=== PATIENT | male | born 1955 | race African-American/Black ===

== ENCOUNTER 2018-07-13 10:37 | Inpatient (IN) ==
[2018-07-13] MEDS ORDERED: Ondansetron 4 MG/2 ML VIAL IVP ONE (11:42)
[2018-07-13] MEDS ORDERED: 0.9 % Sodium Chloride 1,000 ML IVC ONE ×2 (11:42→14:18)
[2018-07-13] MEDS ORDERED: Ketorolac 30 MG/ML VIAL IVP ONE (11:42)
--- NOTE | 2018-07-13 11:46 | Emergency Department Note ---
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 He describes as a sharp stabbing pain that has been constant and exacerbated by by mouth. The patient states she is also had nausea and vomiting that is nonbloody and nonbilious. States he has had a bowel movement in 3 days. 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 Denies any other drug use. States it feels different than when he had pancreatitis. No back pain, flank pain, urinary symptoms or testicular pain. Pain Scale: 9 - Related Data Home Medications Medication Instructions Recorded Confirmed No Known Home Drugs 07/13/18 07/13/18 Allergies Allergy/AdvReac Type Severity Reaction Status Date / Time No Known Allergies Allergy Verified 10/25/17 15:11 All systems ED: reviewed and negative except as stated. Review of Systems: As Per HPI Constitutional: Denies: fever, chills Cardiovascular: Denies: chest pain, palpitations, dyspnea on exertion Respiratory: Denies: cough, dyspnea, wheezes Gastrointestinal: Reports: abdominal pain, nausea, vomiting Genitourinary: Denies: urgency, dysuria, testicular pain Musculoskeletal: Denies: back pain, neck pain Integumentary: Denies: rash Past Medical History - Past Medical History Attestation: Yes The following information was validated with the patient. Medical history: Reports: COPD, hyperlipidemia, hypertension, seizures, other Psychiatric history: Reports: anxiety, bipolar, depression, other - Social History Smoking Status: Current every day smoker Smokeless Tobacco Status: No Alcohol use: Reports: none Drug use: Reports: none Physical Exam CONSTITUTIONAL: Well-appearing; well-nourished; A&O X 3, in no apparent distress. Hypertensive. HEAD: Normocephalic; atraumatic EYES: PERRL, no scleral icterus NOSE: The nose is normal in appearance without rhinorrhea NECK: No JVD or distended neck veins RESP: Normal chest excursion with respiration; breath sounds clear and equal bilaterally; no wheezes, rhonchi, or rales CARD: Regular rhythm, without murmurs, rub or gallop ABD: Non-distended; tender in the epigastric and RUQ without rigidity, no rebound patient has voluntary guarding, no pulsatile mass CHEST: No pain with palpation SKIN: Normal for age and race; warm and dry without diaphoresis ; no apparent lesions EXTREMITIES: Pulses are 2 plus and equal times 4 extremities, no peripheral edema or calf muscle pain - General Limitations: no limitations General appearance: alert Course Course Narrative: Patient will undergo evaluation of his abdominal pain with a CT that is noncontrast of the abdomen and pelvis as well as labs to evaluate for pancreas, liver or gallbladder dysfunction. While he is waiting for CT scan we will treat his pain initially with Toradol and Levsin as well as his nausea with Zofran. We will perform a bedside ultrasound to evaluate the patient's gallbladder. Patient agrees with this plan. - Reevaluation(s) Reevaluation #1: On bedside ultrasound patient's gallbladder appeared to be possibly contracted with no information of the wall and no stones present. Patient CT scan is significant for pancreatitis versus duodenitis given clinical presentation patient is concerning for pancreatitis his lipase is elevated and his CBC does show signs of concentration possibly secondary to dehydration. The patient received 1 L of fluids as well as Toradol for pain. I discussed the patient's case with the hospitalist on-call, Dr. Saravia, and he agrees to accept the patient. He requested an additional liter of fluids as well as a 200 ML per hour maintenance. Time: 15:24 Vital Signs Temperature 98.2 F 07/13/18 10:49 Pulse Rate 91 07/13/18 10:49 Respiratory Rate 20 07/13/18 10:49 Blood Pressure 158/105 07/13/18 10:49 O2 Sat by Pulse Oximetry 97 07/13/18 10:49 Temperature 98.3 F 07/13/18 15:28 Pulse Rate 71 07/13/18 15:28 Respiratory Rate 14 07/13/18 15:28 Blood Pressure 176/97 07/13/18 15:28 O2 Sat by Pulse Oximetry 98 07/13/18 15:28 Oxygen Delivery Oxygen Delivery Room Air Medical Decision Making - Medical Records Medical records reviewed: Yes I reviewed the patient's medical records. - Lab Data Lab results reviewed: Yes I reviewed the patient's lab results. Result diagrams: 07/13/18 11:54 07/13/18 11:54 Lab Results 07/13/18 07/13/18 07/13/18 Range/Units 11:54 11:54 12:00 WBC 13.0 H (4.3-11.1) K/mcL RBC 5.94 H (4.19-5.50) M/mcL Hgb 17.3 H (12.9-16.9) g/dL Hct 50.7 H (37.5-50.1) % MCV 85.4 (83.0-100.0) fL MCH 29.1 (28.0-33.3) pg MCHC 34.1 (31.6-35.5) g/dL RDW 16.4 H (11.5-14.5) % Plt Count 347 (140-400) K/mcL MPV 8.9 L (9.4-12.4) fL Immature Gran % 0.5 (0-4) % Seg Neutrophils % 84.4 % Lymphocytes % 8.4 % Monocytes % 6.5 % Eosinophils % 0.0 % Basophils % 0.2 % Neutrophils # 11.0 H (1.6-8.9) K/mcL Lymphocytes # 1.1 (0.6-4.6) K/mcL Monocytes # 0.8 (0.0-1.3) K/mcL Eosinophils # 0.0 (0.0-0.6) K/mcL Basophils # 0.0 (0.0-0.2) K/mcL Sodium 133 L (136-145) mEq/L Potassium 3.5 (3.5-5.1) mEq/L Chloride 98 (98-107) mEq/L Carbon Dioxide 26 (23-29) mEq/L BUN 6 L (8-23) mg/dL Creatinine 0.88 (0.70-1.30) mg/dL Est GFR ( Amer) > 60 (> 60) Est GFR (Non-Af Amer) > 60 (> 60) BUN/Creatinine Ratio 7 (6-26) Glucose 206 H (70-105) mg/dL Calculated Osmolality 280 (280-300) Calcium 9.5 (8.6-10.3) mg/dL Total Bilirubin 0.7 (0.3-1.0) mg/dL Direct Bilirubin 0.2 (0.0-0.2) mg/dL Indirect Bilirubin 0.5 (0.0-1.2) mg/dL AST 24 (13-39) Units/L ALT 23 (7-52) Units/L Alkaline Phosphatase 102 (34-104) Units/L Troponin I < 0.03 (< 0.04) ng/mL Serum Total Protein 8.0 (6.4-8.9) g/dL Albumin 4.2 (3.5-5.7) g/dL Globulin 3.8 H (2.4-3.5) g/dL Albumin/Globulin Ratio 1.1 (1.1-2.2) Lipase 176 H (11-82) Units/L Urine Color Yellow (Yellow) Urine Clarity Turbid A (Clear) Urine pH 7.5 (5.0-8.0) pH Units Ur Specific [place] 1.011 (1.010-1.025) Urine Protein Trace (Neg-Trace) mg/dL Urine Glucose (UA) 250 H (Normal) mg/dL Urine Ketones Trace H (Negative) mg/dL Urine Blood Negative (Negative) Urine Nitrite Negative (Negative) Urine Bilirubin Negative (Negative) Urine Urobilinogen Normal (Normal) mg/dL Ur Leukocyte Esterase Negative (Negative) Urine Microscopic RBC 3-5 H (0-3) per hpf Urine Microscopic WBC 0-3 (0-3) per hpf Ur Squamous Epith Cells Moderate H (None-Few) per lpf Urine Bacteria None Seen (None-Few) per hpf Hyaline Casts None Seen (None-Few) per lpf Ur Culture Indicated? NO (NO) Ethyl Alcohol < 10 (Less than 10) mg/dL - Radiology Data Radiology results reviewed: Yes I reviewed the patient's radiology results. Abdomen/Pelvis CT 07/13/18 11:42 IMPRESSION: Foramina [place] changes surrounding the pancreatic head and uncinate process is well as descending duodenum. Correlation for acute pancreatitis and/or duodenitis is recommended. D/ / Senait Patrick Cha, MD / Seanit Patrick Cha, MD Interpreting Provider: Senait Patrick Cha, MD - EKG Data EKG #1 EKG attestation: Yes I reviewed and interpreted this EKG. EKG results narrative: EKG done at 12:15 shows sinus rhythm at a rate of 74 bpm. Normal axis. Intervals within normal limits. Patient does have nonspecific ST changes in the V2 and V3. No reciprocal changes. Attestation Statement - Attestation Attestation: Patient was seen with resident physician. I reviewed the history, physical, assessment and plan, and agree with the findings. I also personally evaluated this patient and had [id number] time with this patient. 63-year-old male presents emergency Department chief complaint of abdominal pain. Patient is a history of pancreatitis COPD and hyperlipidemia. Patient states that the pain is different from his pancreatitis pain which was several years ago. Describes the pain as 3 days of midepigastric and right upper quadrant pain that is worse with food and water. He has had nausea and vomiting without diarrhea. Denies fevers or chills. No chest pain or shortness of breath. Review of systems as above remainder negative. Physical exam vital signs mild hypertension. ENT is unremarkable. Heart regular rhythm and rate. Lungs clear. Abdomen mild tenderness in the right upper quadrant midepigastric area without guarding or rigidity. Remainder of abdominal exam is unremarkable. Positive bowel sounds. Extremities unremarkable. Neurologically intact. Skin no rashes. Psych normal. ED course we will do CT scan the abdomen and pelvis bedside ultrasound and lab testing. We will also treat the patient's pain and nausea. We will reevaluate once the lab tests and radiology has been completed. Patient had an elevated lipase. CT scan was indicative of pancreatitis. He was made nothing by mouth. His pain was controlled. He was admitted to the hospital service. Hemodynamically he remained stable in the emergency department. Agree with resident physician assessment and plan.
[2018-07-13 12:06] LABS: Basophils % 0.2 %; Hematocrit 50.7 % (37.5-50.1); Hemoglobin 17.3 g/dL (12.9-16.9); Immature Granulocytes % 0.5 % (0-4); Lymphocytes # 1.1 K/mcL (0.6-4.6); Lymphocytes % 8.4 %; Mean Corpuscular HGB Conc 34.1 g/dL (31.6-35.5); Mean Corpuscular Hemoglobin 29.1 pg (28.0-33.3); Mean Corpuscular Volume 85.4 fL (83.0-100.0); Mean Platelet Volume 8.9 fL (9.4-12.4); Monocytes # 0.8 K/mcL (0.0-1.3); Monocytes % 6.5 %; Platelet Count 347 K/mcL (140-400); Red Blood Count 5.94 M/mcL (4.19-5.50); Red Cell Distribution Width 16.4 % (11.5-14.5); Segmented Neutrophils % 84.4 %
[2018-07-13 12:07] LABS: Bilirubin,Urine Negative (Negative); Blood,Urine Negative (Negative); Clarity,Urine Turbid (Clear); Color,Urine Yellow (Yellow); Glucose,Urine (UA) 250 mg/dL (Normal); Ketones,Urine Trace mg/dL (Negative); Leukocyte Esterase,Urine Negative (Negative); Nitrite,Urine Negative (Negative); PH,Urine 7.5 pH Units (5.0-8.0); Protein,Urine Trace mg/dL (Neg-Trace); Specific Gravity,Urine 1.011 (1.010-1.025); Urobilinogen,Urine Normal (Normal)
[2018-07-13 12:08] LABS: Bacteria,Urine None Seen per hpf (None-Few); Hyaline Casts,Urine None Seen per lpf (None-Few); Squamous Epithelial Cell,Urine Moderate per lpf (None-Few); WBC,Urine 0-3 per hpf (0-3)
[2018-07-13 12:26] LABS: Alanine Aminotransferase 23 Units/L (7-52); Albumin 4.2 g/dL (3.5-5.7); Albumin/Globulin Ratio 1.1 (1.1-2.2); Alkaline Phosphatase 102 Units/L (34-104); Aspartate Amino Transferase 24 Units/L (13-39); BUN/Creatinine Ratio 7 (6-26); Bilirubin,Direct 0.2 mg/dL (0.0-0.2); Bilirubin,Indirect 0.5 mg/dL (0.0-1.2); Bilirubin,Total 0.7 mg/dL (0.3-1.0); Blood Urea Nitrogen 6 mg/dL (8-23); Calcium 9.5 mg/dL (8.6-10.3); Carbon Dioxide 26 mEq/L (23-29); Chloride 98 mEq/L (98-107); Globulin 3.8 g/dL (2.4-3.5); Glucose 206 mg/dL (70-105); Lipase 176 Units/L (11-82); Osmolality,Calculated 280 (280-300); Potassium 3.5 mEq/L (3.5-5.1); Sodium 133 mEq/L (136-145); eGFR For Non-African Americans > 60 (> 60)
[2018-07-13 12:34] LABS: Troponin I < 0.03 ng/mL (< 0.04)
[2018-07-13] MEDS ORDERED: *HR* FentaNYL (PF) 100 MCG/2 ML VIAL IVP ONE (14:22)
[2018-07-13 14:31] LABS: Ethanol < 10 mg/dL (Less than 10)
[2018-07-13] MEDS ORDERED: *HR* Promethazine 25 MG/ML VIAL IVP PRN (14:38)
[2018-07-13] MEDS ORDERED: Naloxone 0.4 MG/ML INJ IVP PRN ×2 (14:50)
--- NOTE | 2018-07-13 15:21 | Internal Med History&Physical ---
Date of Encounter: 07/13/18 Time of Encounter: 15:17 Internal Medicine - H&P: HPI Chief complaint: Epigastric, right upper quadrant abdominal pain with nausea and vomiting Admitted From: Home Plans for Post Hospital Care: Home History of present illness: Mr. Byrnes is a 63 year old male , seizures, anxiety and bipolar depression. Current every day smoker is also reports occasional alcohol use. Additionally, reporting a family history of chronic pancreatitis and his mother. This patient presents with epigastric and right upper quadrant abdominal pain as well as nausea and vomiting since 07/10/18. Reports that his epigastric pain and nausea and vomiting is further exacerbated with food ingestion. He describes the pain as sharp and stabbing. He denies bloody or bilious emesis. Denies any diarrhea. Additionally, he denies any ill contacts , fever, chills, shortness of breath, chest pain, unilateral extremity swelling or pain, urinary symptoms. He reports a prior history of pancreatitis secondary to alcohol use however denies ever consumption recently. He did report that he drank 1 single 24 ounce can of beer Saturday the night prior to experiencing nausea vomiting abdominal pain. Workup in the ED reveals an elevated lipase as well as pancreatic inflammation on CT imaging of abdomen. He is being admitted for treatment of acute on chronic pancreatitis. Past Med Surg Social Fam HX - Past Medical History Medical history: COPD, hyperlipidemia, hypertension, seizures, other Additional medical history: pancreatitis Psychiatric history: anxiety, bipolar, depression, other - Past Surgical History Additional surgical history: cyst removal from chest - Social History Smoking Status: Current every day smoker Smokeless Tobacco Status: No Alcohol use: none Drug use: none - Family History Father Hx Family Cardiac Disorders: Yes Mother Hx Family GI Disorders: Yes (Pancreatitis) Internal Medicine - H&P: Meds No Known Home Drugs 07/13/18 [History] 3 Allergy/AdvReac Type Severity Reaction Status Date / Time No Known Allergies Allergy Verified 10/25/17 15:11 All Systems PM: A 10-system review of systems was performed and is negative for pertinent findings except as documented above in the HPI. - Constitutional Constitutional: as per HPI - Cardiovascular Cardiovascular ROS IM: as per HPI - Respiratory Respiratory: as per HPI - Gastrointestinal Gastrointestinal: as per HPI - Genitourinary Genitourinary ROS male: as per HPI - Integumentary Integumentary IM: no rash, no unusual bruising - Neurological Neurological ROS: no confusion, no convulsions, no focal weakness, no numbness, no tingling, no tremor(s) - Constitutional Vitals: Temp Pulse Resp BP Pulse Ox 98.2 F 73 18 172/105 98 07/13/18 11:35 07/13/18 13:43 07/13/18 14:45 07/13/18 14:45 07/13/18 13:43 General appearance: Present: A&O X 3 Exam: . - Head Head exam: Present: atraumatic, normocephalic - Eye Eye exam: Present: PERRL, conjuntiva pink, sclera anicteric Pupils: Present: PERRL - Neck Neck exam general surgery: Present: supple, trachea midline. Absent: lymphadenopathy - Respiratory Respiratory exam: Present: CTAB. Absent: accessory muscle use, rales, respiratory distress, rhonchi, wheezes, tachypnea - Cardiovascular Cardiovascular exam: Present: RRR, +S1, +S2. Absent: diastolic murmur, gallop, JVD, rubs, systolic murmur - GI/Abdominal GI/Abdominal exam: Present: normal bowel sounds, soft, tenderness (Epigastric and right upper quadrant tenderness without rebound), no peritoneal signs. Absent: distended, firm, guarding, mass, pulsatile mass, rebound, rigid - Extremities Exam Extremities exam: Present: warm, radial pulses palpable and symmetrical. Absent : calf tenderness, cyanotic, pedal edema - Neurological Exam Neurological exam: Present: alert, oriented X3, no focal deficits. Absent: facial droop, speech deficit - Skin Skin exam: Present: dry, intact Internal Med - H&P Results - Labs CBC & Chem 7: 07/13/18 11:54 07/13/18 11:54 - Impressions Impressions Abdomen/Pelvis CT 07/13/18 11:42 IMPRESSION: Inflammatory changes surrounding the pancreatic head and uncinate process is well as descending duodenum. Correlation for acute pancreatitis and/or duodenitis is recommended. D/ / Senait Patrick Cha, MD / Senait aPtrick Cha, MD Interpreting Provider: Senait Patrick Cha, MD - Assessment and plan (1) Acute on chronic pancreatitis Current Visit: Yes Status: Acute Assessment and plan: Presents with a four-day history of intermittent nausea vomiting and epigastric as well as right upper quadrant abdominal pain Prior history of hepatitis secondary to alcohol use; however could also have underlying familial causes mother also has chronic pancreatitis Presents today with acute on chronic pancreatitis CT imaging of the abdomen reveals inflammation of the pancreas; no obvious pseudocyst, infection or necrosis on CT imaging, no ductal dilatation noted; findings of small peripancreatic lymph nodes measuring less than 5 mm lipase elevated 176 Patient does not appear toxic and abdomen is nonacute on exam Not meeting any SIRS criteria low risk for sepsis Given her presentation I do not believe this is effective pancreatitis Obtain lipid panel in the morning Nothing by mouth now Continue IV fluids Recheck lipase in the morning Antiemetics for nausea and vomiting Oxycodone for pain; Toradol when necessary Last occurrence was 2015; we will hold off on enzyme replacement for now Patient appears stable should he decline consider GI consult (2) Nausea and vomiting Current Visit: Yes Status: Acute Assessment and plan: In the setting of acute pancreatitis Treatment with antiemetics Qualifiers: Vomiting Intractability: unspecified Qualified Code(s): R11.2 - Nausea with vomiting, unspecified (3) Acute abdominal pain Current Visit: Yes Status: Acute Assessment and plan: As above (4) Hypertension Current Visit: No Status: Chronic Assessment and plan: Per history Does not take any antihypertensive medications PRN hydralazine for SBP greater than 160 Consider adding anti-HTN medications Elevation of BP likely due to pain with acute pancreatitis Qualifiers: Hypertension type: essential hypertension Qualified Code(s): I10 - Essential (primary) hypertension (5) Nicotine dependence with nicotine-induced disorder Current Visit: No Status: Chronic Assessment and plan: Discussed tobacco cessation Qualifiers: Nicotine product type: cigarettes Qualified Code(s): F17.219 - Nicotine dependence, cigarettes, with unspecified nicotine-induced disorders (6) DVT prophylaxis Current Visit: Yes Status: Acute Assessment and plan: Subcutaneous Lovenox - Time Spent With Patient Total time spent is greater than 50% in coordination of care (as documented) at patient's floor/unit and/or counseling patient: less than 15 minutes
[2018-07-13] MEDS: OXYCODONE Oral CONC 10 MG/0.5 ML ORAL.SYG SL PRN ×2 (16:21→20:34)
[2018-07-13] MEDS: 0.9 % Sodium Chloride 1,000 ML IVC SCH ×2 (17:22→22:33)
[2018-07-13] MEDS: Ketorolac 15 MG/ML VIAL IVP PRN (17:22)
[2018-07-14] MEDS: OXYCODONE Oral CONC 10 MG/0.5 ML ORAL.SYG SL PRN ×3 (03:36→19:01)
[2018-07-14 07:00] LABS: Hematocrit 49.5 % (37.5-50.1); Hemoglobin 16.7 g/dL (12.9-16.9); Mean Corpuscular HGB Conc 33.7 g/dL (31.6-35.5); Mean Corpuscular Volume 86.1 fL (83.0-100.0); Mean Platelet Volume 9.6 fL (9.4-12.4); Platelet Count 353 K/mcL (140-400); Red Blood Count 5.75 M/mcL (4.19-5.50); Red Cell Distribution Width 16.5 % (11.5-14.5)
[2018-07-14] MEDS ORDERED: 0.9 % Sodium Chloride 1,000 ML IVC SCH (07:45)
[2018-07-14 07:48] LABS: BUN/Creatinine Ratio 8 (6-26); Blood Urea Nitrogen 6 mg/dL (8-23); Calcium 9.1 mg/dL (8.6-10.3); Carbon Dioxide 22 mEq/L (23-29); Chloride 108 mEq/L (98-107); Chol/HDL Ratio 1.9 (0-4.9); Cholesterol 105 mg/dL (< 200); Glucose 122 mg/dL (70-105); HDL Cholesterol 56 mg/dL (40-59); LDL Cholesterol,Calculated 40 mg/dL (0-99); Lipase 466 Units/L (11-82); Osmolality,Calculated 283 (280-300); Potassium 3.7 mEq/L (3.5-5.1); Sodium 137 mEq/L (136-145); Triglycerides 46 mg/dL (< 150); eGFR For Non-African Americans > 60 (> 60)
[2018-07-14] MEDS: *HR* Enoxaparin 40 MG/0.4 ML SYRINGE SQ SCH (08:20)
[2018-07-14] MEDS: Ketorolac 15 MG/ML VIAL IVP PRN ×2 (08:20→21:43)
--- NOTE | 2018-07-14 09:38 | Internal Med Progress Note ---
Hospitalist Progress Note - Encounter Date of Encounter: 07/14/18 Time of Encounter: 09:35 - Subjective Interval History: Seen and examined at bedside today, continues to have abdominal pain as well as nausea but denies any vomiting. - Exam Vitals: Temp Pulse Resp BP Pulse Ox 98.5 F 73 16 131/75 95 07/14/18 05:41 07/14/18 05:41 07/14/18 05:41 07/14/18 07:48 07/14/18 03:18 Exam: PHYSICAL EXAMINATION: GENERAL: The patient is a well-developed, well-nourished -[place] male in distress due to abdominal pain. He is alert and oriented x3. HEENT: Head is normocephalic and atraumatic. Extraocular muscles are intact. Pupils are equal, round, and reactive to light and accommodation. NECK: Supple. No carotid bruits. No lymphadenopathy or thyromegaly. LUNGS: Clear to auscultation B/L AP and L. HEART: Regular rate and rhythm, S1, S2 without murmur. ABDOMEN: Soft, and nondistended. Positive bowel sounds. No hepatosplenomegaly was noted. Epigastric and right upper quadrant tenderness without rebound. No guarding. EXTREMITIES: Without any cyanosis, clubbing, rash, lesions or edema. SKIN: No ulceration or induration present. - Assessment and Plan (1) Acute on chronic pancreatitis Current Visit: Yes Status: Acute Assessment and Plan: Presents with a four-day history of intermittent nausea vomiting and epigastric as well as right upper quadrant abdominal pain Prior history of hepatitis secondary to alcohol use; however could also have underlying familial causes mother also has chronic pancreatitis Presents today with acute on chronic pancreatitis CT imaging of the abdomen reveals inflammation of the pancreas; no obvious pseudocyst, infection or necrosis on CT imaging, no ductal dilatation noted; findings of small peripancreatic lymph nodes measuring less than 5 mm lipase elevated 176 Patient does not appear toxic and abdomen is nonacute on exam Not meeting any SIRS criteria low risk for sepsis Given her presentation I do not believe this is effective pancreatitis Obtain lipid panel in the morning Nothing by mouth now Continue IV fluids Recheck lipase in the morning Antiemetics for nausea and vomiting Oxycodone for pain; Toradol when necessary Last occurrence was 2015; we will hold off on enzyme replacement for now Patient appears stable should he decline consider GI consult 07/14--continues to have nausea and epigastric and RUQ pain. White count trending up this morning, lipase continuing to trend up. Has received a total of 4 L normal saline. Continue with IVF 200 mL per hour, consult GI-case discussed with Johnathon Avalos CNP. Thank you for your consultation I appreciate your recommendations. Continue to treat as stated above. Defer to GI in regards to prophylactic ABX or additional abdominal imaging. (2) Nausea and vomiting Current Visit: Yes Status: Acute Assessment and Plan: As above (3) Acute abdominal pain Current Visit: Yes Status: Acute Assessment and Plan: As above (4) Hypertension Current Visit: No Status: Chronic Assessment and Plan: Persistent Continue treating with PRN anti-HTN meds via IV (5) Nicotine dependence with nicotine-induced disorder Current Visit: No Status: Chronic Assessment and Plan: Discussed tobacco cessation (6) DVT prophylaxis Current Visit: Yes Status: Acute Assessment and Plan: SC Lovenox - Time Spent with Patient Total time spent is greater than 50% in coordination of care (as documented) at patient's floor/unit and/or counseling patient: less than 15 minutes Plan of Care Discussed with: patient Internal Medicine: Result - Labs CBC & Chem 7: 07/14/18 06:02 07/14/18 06:02 Labs: Short CBC 07/14/18 Range/Units 06:02 WBC 15.4 H (4.3-11.1) K/mcL Hgb 16.7 (12.9-16.9) g/dL Hct 49.5 (37.5-50.1) % Plt Count 353 (140-400) K/mcL BMP 07/14/18 06:02 Sodium 137 Potassium 3.7 Chloride 108 H Carbon Dioxide 22 L BUN 6 L Creatinine 0.74 Glucose 122 H Calcium 9.1 Consult Discharge Plan - Plan (2) Nausea and vomiting Qualifiers: Vomiting Intractability: unspecified Qualified Code(s): R11.2 - Nausea with vomiting, unspecified (4) Hypertension Qualifiers: Hypertension type: essential hypertension Qualified Code(s): I10 - Essential (primary) hypertension (5) Nicotine dependence with nicotine-induced disorder Qualifiers: Nicotine product type: cigarettes Qualified Code(s): F17.219 - Nicotine dependence, cigarettes, with unspecified nicotine-induced disorders
[2018-07-14] MEDS: 0.9 % Sodium Chloride 1,000 ML IVC SCH ×3 (09:39→21:48)
[2018-07-14 10:07] LABS: VBG Ionized Calcium 1.11 mmol/L (1.15-1.35)
--- NOTE | 2018-07-14 11:58 | Gastroenterology Consult Note ---
<AvalosJohnathon ross Kashif - Last Filed: 07/14/18 11:54> Date of Encounter: 07/14/18 Time of Encounter: 10:40 - Assessment and plan (1) Acute on chronic pancreatitis Current Visit: Yes Status: Acute Assessment and plan: CT A/P with moderate amount edema and stranding adjacent to the pancreatic head and uncinate process as well as descending duodenum. Lipase on admission 176 and today lipase 466. Patient did consume alcohol the day prior to symptoms starting. Complete MRCP, check ABE, IgG4, and ionized calcium. Triglycerides and LFTs were normal. Will discuss prophylactic antibiotics with Dr. Vinson. Continue IV fluids at 200 ml/hr, pain control, and antiemetics. - Time Spent With Patient Total time spent is greater than 50% in coordination of care (as documented) at patient's floor/unit and/or counseling patient: GI History of Present Illness - Data of Consult Patient: known to practice within the last 3 years Consult date: 07/14/18 Requesting Physician: Rachel Saravia MD - Consult Narrative Reason for consult: Pancreatitis History of present illness: Mr. Byrnes is a 63 year old male with PMHx of COPD, HLD, HTN, seizures, bipolar , pancreatitis, alcohol dependency and abuse who presented with epigastric and RUQ pain associated with nausea and vomiting that started on 07/10/2018. Symptoms are worsened with eating. He reports a prior history of pancreatitis secondary to alcohol use. He did report that he drank 1 single 24 ounce can of beer Saturday the night prior to experiencing nausea vomiting abdominal pain. He denies hematemesis or coffee-ground emesis. CT A/P with moderate amount edema and stranding adjacent to the pancreatic head and uncinate process as well as descending duodenum. Lipase on admission 176 and today lipase 466. WBC on admission 13 and today WBC 15.4. He continues on IVFs at 200 ml/hr. Procedures: None NSAIDs: None Anticoagulation: None Past Med Surg Social Fam HX - Past Medical History Medical history: COPD, hyperlipidemia, hypertension, seizures, other Additional medical history: pancreatitis Psychiatric history: anxiety, bipolar, depression, other - Past Surgical History Additional surgical history: cyst removal from chest - Social History Smoking Status: Current every day smoker Smokeless Tobacco Status: No Alcohol use: occasionally Drug use: none - Family History Mother Adopted: [place]: Esther Byrnes Age: 69 Family Member Ethnicity: Non- Living Status: Age at : 69 Cause of : Diabetic Coma Hx Family Cardiac Disorders: No Hx Family Respiratory Disorders: No Hx Family Cancer: No Hx Family GI Disorders: No Hx Family Genitourinary Disorders: No Hx Family Endocrine Disorder: Yes (Diabetes) Hx Family Musculoskeletal Disorders: No Hx Family Neuromuscular Disorders: No Hx Family Neurologic Disorders: No Hx Family HEENT Disorders: No Hx Family Autoimmune Disorders: No Hx Family Reproductive Disorders: No Hx Family Psychosocial Disorders: No Hx Family Medical Disorders: No Father Hx Family Cardiac Disorders: Yes - Gastrointestinal Gastrointestinal: Present: as per HPI - Constitutional Constitutional: as per HPI - EENT Eyes: as per HPI Ears: Present: as per HPI Nose, mouth and throat: Present: as per HPI - Cardiovascular Cardiovascular ROS: Present: as per HPI - Respiratory Respiratory IM: Present: as per HPI - Genitourinary Genitourinary: Absent: change in color, Urinary frequency - Neurological ROS Neurological GI: Present: as per HPI - Hematologic/Lymphatic Hematologic/Lymphatic pediatric: Present: as per HPI - Musculoskeletal Musculoskeletal ROS GI: Present: as per HPI - Integumentary Integumentary GI: Present: as per HPI - Psychiatric ROS Psychiatric GI: Present: as per HPI - Endocrine Endocrine IM: Present: as per HPI - Constitutional Vitals: Temp Pulse Resp BP Pulse Ox 98.0 F 86 16 154/89 94 07/14/18 10:58 07/14/18 10:58 07/14/18 10:58 07/14/18 10:58 07/14/18 10:58 General appearance: Present: cooperative, A&O X 3, no acute distress, answers questions appropriately - Head Head exam: Present: atraumatic, normocephalic - Eye Eye exam: Present: normal appearance, sclera anicteric - ENT ENT exam: Present: mucous membranes dry - Neck Neck exam general surgery: Present: normal inspection, trachea midline - Respiratory Respiratory exam: Present: CTAB. Absent: rales, rhonchi, wheezes - Cardiovascular Cardiovascular exam: Present: RRR, +S1, +S2 - GI/Abdominal GI/Abdominal exam: Present: normal bowel sounds, soft, tenderness (RUQ and epigastric), no peritoneal signs. Absent: distended, firm, guarding - Rectal Rectal exam: Present: deferred - Extremities Exam Extremities exam: Present: warm - Neurological Exam Neurological exam: Present: no focal deficits - Psychiatric Psychiatric exam: Present: normal affect, normal mood - Skin Skin exam: Present: dry, intact, normal color, warm Results - Labs CBC & Chem 7: 07/14/18 06:02 07/14/18 06:02 Labs: Last Result Calcium 9.1 mg/dL (8.6-10.3) 07/14/18 06:02 Troponin I < 0.03 ng/mL (< 0.04) 07/13/18 11:54 Triglycerides 46 mg/dL (< 150) 07/14/18 06:02 Entire Visit Hgb 16.7 g/dL (12.9-16.9) 07/14/18 06:02 Hct 49.5 % (37.5-50.1) 07/14/18 06:02 Total Bilirubin 0.7 mg/dL (0.3-1.0) 07/13/18 11:54 AST 24 Units/L (13-39) 07/13/18 11:54 ALT 23 Units/L (7-52) 07/13/18 11:54 Lipase 466 Units/L (11-82) H 07/14/18 06:02 Consult Discharge Plan - Plan Referrals: Ryan Mcbride [Resident] - 07/25/18 2:00 pm <Alberto Vinson - Last Filed: 07/16/18 12:19> Date of Encounter: 07/14/18 - Time Spent With Patient Total time spent is greater than 50% in coordination of care (as documented) at patient's floor/unit and/or counseling patient: GI History of Present Illness - Data of Consult Requesting Physician: Rachel Saravia MD - Consult Narrative History of present illness: Mr. Byrnes is a 63 year old male - Constitutional Vitals: Temp Pulse Resp BP Pulse Ox 98.1 F 70 16 149/74 95 07/16/18 07:29 07/16/18 07:29 07/16/18 07:29 07/16/18 07:29 07/16/18 07:29 Results - Labs CBC & Chem 7: 07/16/18 08:31 07/16/18 08:31 Labs: Last Result Calcium 8.3 mg/dL (8.6-10.3) L 09/26/18 08:31 Troponin I < 0.03 ng/mL (< 0.04) 07/13/18 11:54 Triglycerides 46 mg/dL (< 150) 07/14/18 06:02 Entire Visit Hgb 15.4 g/dL (12.9-16.9) 07/16/18 08:31 Hct 44.9 % (37.5-50.1) 07/16/18 08:31 Total Bilirubin 0.7 mg/dL (0.3-1.0) 07/13/18 11:54 AST 24 Units/L (13-39) 07/13/18 11:54 ALT 23 Units/L (7-52) 07/13/18 11:54 Lipase 71 Units/L (11-82) 07/15/18 06:02 - Attending Attestation Patient with acute pancreatitis work up in progress. I have personally performed a face to face evaluation on this patient. I have reviewed and agree with the care plan. History and Exam by me shows:
--- NOTE | 2018-07-14 17:23 | Electrocardiograph Report ---
[address] [place], [place] [address] Test Date: 2018-07-13 Pat Name: Amadou Byrnes Department: [id number] Room: 3A22 Gender: M [employer]: : 1955 Requested By: Delvin Shipman Order Number: [id number] Reading MD: Ksenia Roy Measurements Intervals [place] Rate: 74 P: 55 [place]: 161 QRS: -49 QRSD: 95 T: 31 QT: 390 QTc: 433 Interpretive Statements Sinus rhythm Probable left atrial enlargement Left anterior fascicular block Left ventricular hypertrophy Possible anterior myocardial infarction, age indeterminate Electronically Signed On 07-14-2018 17:20:54 EDT by Ksenia Roy
[2018-07-14] MEDS ORDERED: 0.9 % Sodium Chloride 1,000 ML ONE (21:46)
[2018-07-15] MEDS: OXYCODONE Oral CONC 10 MG/0.5 ML ORAL.SYG SL PRN ×2 (04:39→09:01)
[2018-07-15] MEDS: 0.9 % Sodium Chloride 1,000 ML IVC SCH ×3 (04:40→19:49)
[2018-07-15] MEDS: Ketorolac 15 MG/ML VIAL IVP PRN ×3 (05:33→20:11)
[2018-07-15 06:41] LABS: Hematocrit 45.1 % (37.5-50.1); Hemoglobin 15.3 g/dL (12.9-16.9); Mean Corpuscular HGB Conc 33.9 g/dL (31.6-35.5); Mean Corpuscular Hemoglobin 29.4 pg (28.0-33.3); Mean Corpuscular Volume 86.7 fL (83.0-100.0); Mean Platelet Volume 9.7 fL (9.4-12.4); Platelet Count 293 K/mcL (140-400); Red Cell Distribution Width 16.5 % (11.5-14.5)
[2018-07-15 07:00] LABS: BUN/Creatinine Ratio 16 (6-26); Blood Urea Nitrogen 11 mg/dL (8-23); Calcium 8.5 mg/dL (8.6-10.3); Carbon Dioxide 21 mEq/L (23-29); Chloride 110 mEq/L (98-107); Glucose 82 mg/dL (70-105); Lipase 71 Units/L (11-82); Osmolality,Calculated 286 (280-300); Potassium 3.3 mEq/L (3.5-5.1); Sodium 139 mEq/L (136-145); eGFR For Non-African Americans > 60 (> 60)
--- NOTE | 2018-07-15 08:13 | Internal Med Progress Note ---
Hospitalist Progress Note - Encounter Date of Encounter: 07/15/18 Time of Encounter: 08:00 - Exam Vitals: Temp Pulse Resp BP Pulse Ox 98.4 F 71 14 148/80 97 07/15/18 06:49 07/15/18 06:49 07/15/18 06:49 07/15/18 06:49 07/15/18 06:49 Exam: PHYSICAL EXAMINATION: GENERAL: The patient is a well-developed, well-nourished -[place] male in distress due to abdominal pain. He is alert and oriented x3. HEENT: Head is normocephalic and atraumatic. Extraocular muscles are intact. Pupils are equal, round, and reactive to light and accommodation. NECK: Supple. No carotid bruits. No lymphadenopathy or thyromegaly. LUNGS: Clear to auscultation B/L AP and L. HEART: Regular rate and rhythm, S1, S2 without murmur. ABDOMEN: Soft, and nondistended. Positive bowel sounds. No hepatosplenomegaly was noted. Epigastric and right upper quadrant tenderness without rebound. No guarding. EXTREMITIES: Without any cyanosis, clubbing, rash, lesions or edema. SKIN: No ulceration or induration present. - Assessment and Plan (1) Acute on chronic pancreatitis Current Visit: Yes Status: Acute Assessment and Plan: Presents today with acute on chronic pancreatitis CT imaging of the abdomen reveals inflammation of the pancreas; no obvious pseudocyst, infection or necrosis on CT imaging, no ductal dilatation noted; findings of small peripancreatic lymph nodes measuring less than 5 mm 07/15-Continue IV fluids and pain control PRN. Started on a liquid diet today and will advance as tolerated (2) Nicotine dependence with nicotine-induced disorder Current Visit: Yes Status: Chronic Assessment and Plan: Discussed tobacco cessation (3) Hypertension Current Visit: No Status: Chronic Assessment and Plan: Persistent Continue treating with PRN anti-HTN meds via IV (4) Acute abdominal pain Current Visit: Yes Status: Acute Assessment and Plan: As above (5) Nausea and vomiting Current Visit: Yes Status: Acute Assessment and Plan: As above (6) DVT prophylaxis Current Visit: Yes Status: Acute Assessment and Plan: SC Lovenox - Time Spent with Patient Total time spent is greater than 50% in coordination of care (as documented) at patient's floor/unit and/or counseling patient: Internal Medicine: Result - Labs CBC & Chem 7: 07/15/18 06:02 07/15/18 06:02 Labs: Short CBC 07/15/18 Range/Units 06:02 WBC 10.7 (4.3-11.1) K/mcL Hgb 15.3 (12.9-16.9) g/dL Hct 45.1 (37.5-50.1) % Plt Count 293 (140-400) K/mcL BMP 07/15/18 06:02 Sodium 139 Potassium 3.3 L Chloride 110 H Carbon Dioxide 21 L BUN 11 Creatinine 0.70 Glucose 82 Calcium 8.5 L - Impressions Impressions Abdomen MRI 07/14/18 11:52 IMPRESSION: 1. No appreciable cholelithiasis or choledocholithiasis. 2. Hazy T2 hyperintensity in the pancreatic head may reflect pancreatitis. D/ / Boris Baum MD / Boris Baum MD Interpreting Provider: Boris Baum MD Consult Discharge Plan - Plan Referrals: NONE,PCP [Primary Care Provider] - (2) Nicotine dependence with nicotine-induced disorder Qualifiers: Nicotine product type: cigarettes Qualified Code(s): F17.219 - Nicotine dependence, cigarettes, with unspecified nicotine-induced disorders (3) Hypertension Qualifiers: Hypertension type: essential hypertension Qualified Code(s): I10 - Essential (primary) hypertension (5) Nausea and vomiting Qualifiers: Vomiting Intractability: unspecified
[2018-07-15] MEDS: *HR* Enoxaparin 40 MG/0.4 ML SYRINGE SQ SCH (09:01)
[2018-07-15] MEDS: Potassium Chloride Elixir 20 MEQ/15 ML UDC PO SCH ×2 (09:02→11:19)
[2018-07-15] MEDS: Ondansetron 4 MG/2 ML VIAL IVP PRN ×2 (12:40→19:50)
[2018-07-15 15:22] LABS: Immunoglobulin G Subclass 4 22 mg/dL (1-123)
[2018-07-15] MEDS: CarBAMazepine XR (12 hr) 100 MG TAB PO SCH (19:50)
[2018-07-16] MEDS: Ketorolac 15 MG/ML VIAL IVP PRN ×2 (02:10→08:10)
[2018-07-16] MEDS: 0.9 % Sodium Chloride 1,000 ML IVC SCH ×4 (03:55→20:39)
[2018-07-16] MEDS: *HR* Enoxaparin 40 MG/0.4 ML SYRINGE SQ SCH (05:39)
--- NOTE | 2018-07-16 07:38 | Discharge Summary ---
Orders not resulted at time of discharge: Pending orders 07/14/18 09:45 Culture,Blood [BC] Routine 07/14/18 09:53 ABE IgG ELOISA rflx IFA Routine Immunoglobulin G Subclass 4 Routine Date of Encounter: 07/16/18 Time of Encounter: 07:30 - Discharge Diagnosis (1) Acute on chronic pancreatitis Priority: Primary Status: Acute Assessment and Plan: Presents today with acute on chronic pancreatitis CT imaging of the abdomen reveals inflammation of the pancreas; no obvious pseudocyst, infection or necrosis on CT imaging, no ductal dilatation noted; findings of small peripancreatic lymph nodes measuring less than 5 mm 07/15-Continue IV fluids and pain control PRN. Started on a liquid diet today and will advance as tolerated (2) Nicotine dependence with nicotine-induced disorder Status: Chronic Qualifiers: Nicotine product type: cigarettes Qualified Code(s): F17.219 - Nicotine dependence, cigarettes, with unspecified nicotine-induced disorders (3) Hypertension Status: Chronic Qualifiers: Hypertension type: essential hypertension Qualified Code(s): I10 - Essential (primary) hypertension (4) Acute abdominal pain Status: Acute (5) Nausea and vomiting Status: Acute Qualifiers: Vomiting Intractability: unspecified (6) DVT prophylaxis Status: Acute Hospital course: Mr. Byrnes is a 63 year old male - Time Spent with Patient Total time spent providing and/or coordinating discharge services: - Discharge Medications Home Medications: carBAMazepine [Tegretol Xr] 200 mg PO BID 07/15/18 [History] Allergies/Adverse Reactions: 3 Allergy/AdvReac Type Severity Reaction Status Date / Time No Known Allergies Allergy Verified 10/25/17 15:11 Date of admission: 07/13/18 17:26 Primary care physician: PCP NONE Consults: 07/14/18 09:32 Consult to Gastroenterology [CONS] Routine Consulting Provider: [facility] [place] Reason for Consult: pancreatitis Time Notified: 09:32 Call Completed: Yes - Constitutional Vitals: Temp Pulse Resp BP Pulse Ox 98.1 F 70 16 149/74 95 07/16/18 07:29 07/16/18 07:29 07/16/18 07:29 07/16/18 07:29 07/16/18 07:29 General appearance: Present: A&O X 3 Exam: PHYSICAL EXAMINATION: GENERAL: The patient is a well-developed, well-nourished -Stateless male in distress due to abdominal pain. He is alert and oriented x3. HEENT: Head is normocephalic and atraumatic. Extraocular muscles are intact. Pupils are equal, round, and reactive to light and accommodation. NECK: Supple. No carotid bruits. No lymphadenopathy or thyromegaly. LUNGS: Clear to auscultation B/L AP and L. HEART: Regular rate and rhythm, S1, S2 without murmur. ABDOMEN: Soft, and nondistended. Positive bowel sounds. No hepatosplenomegaly was noted. Epigastric and right upper quadrant tenderness without rebound. No guarding. EXTREMITIES: Without any cyanosis, clubbing, rash, lesions or edema. SKIN: No ulceration or induration present. - Head Head exam: Present: atraumatic, normocephalic - Eye Eye exam: Present: PERRL, conjuntiva pink, sclera anicteric Pupils: Present: PERRL - Neck Neck exam general surgery: Present: supple, trachea midline. Absent: lymphadenopathy - Respiratory Respiratory exam: Present: CTAB. Absent: accessory muscle use, rales, rhonchi, wheezes - Cardiovascular Cardiovascular exam: Present: RRR, +S1, +S2. Absent: diastolic murmur, gallop, rubs, systolic murmur - GI/Abdominal GI/Abdominal exam: Present: normal bowel sounds, soft, no peritoneal signs. Absent: distended, tenderness - Extremities Exam Extremities exam: Present: warm, radial pulses palpable and symmetrical. Absent : calf tenderness, cyanotic, pedal edema - Neurological Exam Neurological exam: Present: CN II-XII intact, oriented X3, no focal deficits. Absent: pronater drift, facial droop, speech deficit - Skin Skin exam: Present: dry, intact - Patient Status Condition: Good - Discharge Instructions Follow Up With: NONE,PCP [Primary Care Provider] - Forms: ED Satisfaction Letter, Work/School Release
[2018-07-16] MEDS: CarBAMazepine XR (12 hr) 100 MG TAB PO SCH ×2 (08:10→20:41)
[2018-07-16 08:45] LABS: Basophils % 0.3 %; Eosinophils # 0.1 K/mcL (0.0-0.6); Eosinophils % 0.8 %; Hematocrit 44.9 % (37.5-50.1); Hemoglobin 15.4 g/dL (12.9-16.9); Immature Granulocytes % 0.3 % (0-4); Lymphocytes # 1.6 K/mcL (0.6-4.6); Lymphocytes % 17.9 %; Mean Corpuscular HGB Conc 34.3 g/dL (31.6-35.5); Mean Corpuscular Hemoglobin 29.4 pg (28.0-33.3); Mean Corpuscular Volume 85.9 fL (83.0-100.0); Mean Platelet Volume 8.9 fL (9.4-12.4); Monocytes # 0.8 K/mcL (0.0-1.3); Monocytes % 8.9 %; Neutrophils # 6.5 K/mcL (1.6-8.9); Platelet Count 284 K/mcL (140-400); Red Blood Count 5.23 M/mcL (4.19-5.50); Red Cell Distribution Width 15.7 % (11.5-14.5); Segmented Neutrophils % 71.8 %
--- NOTE | 2018-07-16 08:47 | Internal Med Progress Note ---
Hospitalist Progress Note - Encounter Date of Encounter: 07/16/18 Time of Encounter: 08:45 - Exam Vitals: Temp Pulse Resp BP Pulse Ox 98.1 F 70 16 149/74 95 07/16/18 07:29 07/16/18 07:29 07/16/18 07:29 07/16/18 07:29 07/16/18 07:29 Exam: PHYSICAL EXAMINATION: GENERAL: The patient is a well-developed, well-nourished -[place]gas[place] male in distress due to abdominal pain. He is alert and oriented x3. HEENT: Head is normocephalic and atraumatic. Extraocular muscles are intact. Pupils are equal, round, and reactive to light and accommodation. NECK: Supple. No carotid bruits. No lymphadenopathy or thyromegaly. LUNGS: Clear to auscultation B/L AP and L. HEART: Regular rate and rhythm, S1, S2 without murmur. ABDOMEN: Soft, and nondistended. Positive bowel sounds. No hepatosplenomegaly was noted. Epigastric and right upper quadrant tenderness without rebound. No guarding. EXTREMITIES: Without any cyanosis, clubbing, rash, lesions or edema. SKIN: No ulceration or induration present. - Assessment and Plan (1) Acute on chronic pancreatitis Current Visit: Yes Status: Acute Assessment and Plan: Presents today with acute on chronic pancreatitis CT imaging of the abdomen reveals inflammation of the pancreas; no obvious pseudocyst, infection or necrosis on CT imaging, no ductal dilatation noted; findings of small peripancreatic lymph nodes measuring less than 5 mm 07/16-Patient was started on clear liquids yesterday but began to have nausea, vomiting and abdominal pain. Will continue IV fluids and pain control PRN. Keep NPO and gently restart diet (2) Nicotine dependence with nicotine-induced disorder Current Visit: Yes Status: Chronic Assessment and Plan: Discussed tobacco cessation (3) Hypertension Current Visit: Yes Status: Chronic Assessment and Plan: Persistent Continue treating with PRN anti-HTN meds via IV (4) Acute abdominal pain Current Visit: Yes Status: Acute Assessment and Plan: As above (5) Nausea and vomiting Current Visit: Yes Status: Acute Assessment and Plan: As above (6) DVT prophylaxis Current Visit: Yes Status: Acute Assessment and Plan: SC Lovenox - Time Spent with Patient Total time spent is greater than 50% in coordination of care (as documented) at patient's floor/unit and/or counseling patient: Internal Medicine: Result - Labs CBC & Chem 7: 07/16/18 08:31 07/16/18 08:31 Labs: Short CBC 07/16/18 Range/Units 08:31 WBC 9.1 (4.3-11.1) K/mcL Hgb 15.4 (12.9-16.9) g/dL Hct 44.9 (37.5-50.1) % Plt Count 284 (140-400) K/mcL Neutrophils # 6.5 (1.6-8.9) K/mcL Consult Discharge Plan - Plan Referrals: Ryan Mcbride [Resident] - 07/25/18 2:00 pm (2) Nicotine dependence with nicotine-induced disorder Qualifiers: Nicotine product type: cigarettes Qualified Code(s): F17.219 - Nicotine dependence, cigarettes, with unspecified nicotine-induced disorders (3) Hypertension Qualifiers: Hypertension type: essential hypertension Qualified Code(s): I10 - Essential (primary) hypertension (5) Nausea and vomiting Qualifiers: Vomiting Intractability: unspecified Qualified Code(s): R11.2 - Nausea with vomiting, unspecified
[2018-07-16 09:07] LABS: BUN/Creatinine Ratio 9 (6-26); Blood Urea Nitrogen 6 mg/dL (8-23); Calcium 8.3 mg/dL (8.6-10.3); Carbon Dioxide 21 mEq/L (23-29); Chloride 107 mEq/L (98-107); Glucose 105 mg/dL (70-105); Osmolality,Calculated 278 (280-300); Potassium 3.4 mEq/L (3.5-5.1); Sodium 135 mEq/L (136-145); eGFR For Non-African Americans > 60 (> 60)
[2018-07-16] MEDS: *HR* Morphine 2 MG/ML SYRINGE IVP PRN ×2 (12:17→18:58)
[2018-07-17] MEDS: *HR* Morphine 2 MG/ML SYRINGE IVP PRN ×2 (01:55→09:31)
[2018-07-17] MEDS: 0.9 % Sodium Chloride 1,000 ML IVC SCH (02:04)
[2018-07-17] MEDS: *HR* Enoxaparin 40 MG/0.4 ML SYRINGE SQ SCH (06:24)
[2018-07-17 07:40] LABS: ANA IgG by ELISA NONE DETECTED (None Detected)
[2018-07-17 08:22] VITALS: BP 149/90
--- NOTE | 2018-07-17 08:46 | Discharge Summary ---
Orders not resulted at time of discharge: Pending orders 07/14/18 09:45 Culture,Blood [BC] Routine Date of Encounter: 07/17/18 Time of Encounter: 08:45 - Discharge Diagnosis (1) Acute on chronic pancreatitis Priority: Primary Status: Acute Assessment and Plan: 63 year old male , seizures, anxiety and bipolar depression. Current every day smoker is also reports occasional alcohol use. Additionally, reporting a family history of chronic pancreatitis and his mother. This patient presents with epigastric and right upper quadrant abdominal pain as well as nausea and vomiting since 07/10/18. Reports that his epigastric pain and nausea and vomiting is further exacerbated with food ingestion. He describes the pain as sharp and stabbing. He denies bloody or bilious emesis. Denies any diarrhea. Additionally, he denies any ill contacts, fever, chills, shortness of breath, chest pain, unilateral extremity swelling or pain, urinary symptoms He was assessed with acute worsening of chronic pancreatitis. CT imaging of the abdomen revealed inflammation of the pancreas; no obvious pseudocyst, infection or necrosis on CT imaging, no ductal dilatation noted; findings of small peripancreatic lymph nodes measuring less than 5 mm. He was started on IV fluids and pain control PRN. His diet was gradually restarted which he was eventually able to tolerate. He was discharged in a stable condition. He was also discharged on pancreatic enzyme replacement and will follow up with his PCP. 35minutes was spent discharging this patient (2) Nicotine dependence with nicotine-induced disorder Priority: Secondary Status: Chronic Qualifiers: Nicotine product type: cigarettes Qualified Code(s): F17.219 - Nicotine dependence, cigarettes, with unspecified nicotine-induced disorders (3) Hypertension Priority: Secondary Status: Chronic Qualifiers: Hypertension type: essential hypertension Qualified Code(s): I10 - Essential (primary) hypertension (4) Acute abdominal pain Priority: Secondary Status: Acute (5) Nausea and vomiting Priority: Secondary Status: Acute Qualifiers: Vomiting Intractability: unspecified Qualified Code(s): R11.2 - Nausea with vomiting, unspecified (6) DVT prophylaxis Priority: Secondary Status: Acute Hospital course: Mr. Byrnes is a 63 year old male - Time Spent with Patient Total time spent providing and/or coordinating discharge services: - Discharge Medications Prescriptions: Lipase/Protease/Amylase [Nuris Sifuentes 24,000 Units Capsule] 1 each PO TIDWM 30 Days #90 cap Home Medications: carBAMazepine [Tegretol Xr] 200 mg PO BID 07/15/18 [History] Lipase/Protease/Amylase [Creon Dr 24,000 Units Capsule] 1 each PO TIDWM 30 Days #90 cap 07/17/18 [Rx] Allergies/Adverse Reactions: 3 Allergy/AdvReac Type Severity Reaction Status Date / Time No Known Allergies Allergy Verified 10/25/17 15:11 Date of admission: 07/13/18 17:26 Primary care physician: PCP NONE Consults: 07/14/18 09:32 Consult to Gastroenterology [CONS] Routine Consulting Provider: [facility] Reason for Consult: pancreatitis Time Notified: 09:32 Call Completed: Yes - Constitutional Vitals: Temp Pulse Resp BP Pulse Ox 98.4 F 76 16 149/90 97 07/17/18 08:19 07/17/18 08:19 07/17/18 08:19 07/17/18 08:19 07/17/18 08:19 General appearance: Present: A&O X 3 Exam: PHYSICAL EXAMINATION: GENERAL: The patient is a well-developed, well-nourished -[place] male in distress due to abdominal pain. He is alert and oriented x3. HEENT: Head is normocephalic and atraumatic. Extraocular muscles are intact. Pupils are equal, round, and reactive to light and accommodation. NECK: Supple. No carotid bruits. No lymphadenopathy or thyromegaly. LUNGS: Clear to auscultation B/L AP and L. HEART: Regular rate and rhythm, S1, S2 without murmur. ABDOMEN: Soft, and nondistended. Positive bowel sounds. No hepatosplenomegaly was noted. Epigastric and right upper quadrant tenderness without rebound. No guarding. EXTREMITIES: Without any cyanosis, clubbing, rash, lesions or edema. SKIN: No ulceration or induration present. - Patient Status Disposition: Home, Self-Care Condition: Good - Discharge Instructions Instructions: Pancreatitis (DC) Follow Up With: Ryan Mcbride [Resident] - 07/25/18 2:00 pm Forms: ED Satisfaction Letter, Work/School Release
[2018-07-17] MEDS: CarBAMazepine XR (12 hr) 100 MG TAB PO SCH (09:32)
== END 2018-07-17 12:00 | disposition home or self-care (01) | DRG 282 ==
LOC: 3ANU 10:37 → EMEROOARM 10:37 → 3ANU 15:04
PROVIDERS: ADMIT Internal Medicine; ATTEND Internal Medicine